=== PATIENT | male | born 1995 | race Two or more races ===

== ENCOUNTER 2025-06-11 00:31 | Inpatient (IN) | payer SELFPAY ==
[~2025-06-11] VITALS: Ht 170.2 cm; Wt 83.4 kg
[2025-06-11 00:57] LABS: PLATELET COUNT, AUTOMATED 249 10^3/uL (150-450)
[2025-06-11 01:21] LABS: ETHYL ALCOHOL (ETHANOL) 0.183 % (0.000-0.010)
[2025-06-11 01:23] LABS: SALICYLATE LEVEL < 3.0 MG/DL (<30)
[2025-06-11 01:24] LABS: ALT/SGPT 14 U/L (7.0-40); AST/SGOT 25 U/L (<34); CALCIUM LEVEL 9.2 MG/DL (8.5-10.1); CARBON DIOXIDE LEVEL 24 MMOL/L (20-31); CHLORIDE LEVEL 104 MMOL/L (98-107); CREATININE FOR GFR 0.92 MG/DL (0.70-1.30); GLOMERULAR FILTRATION RATE > 90.0 (>60); POTASSIUM SERUM 3.8 MMOL/L (3.5-5.1); SODIUM LEVEL 142 MMOL/L (136-145)
[2025-06-11 01:41] LABS: PHENCYCLIDINE URINE NEGATIVE (NEGATIVE)
[2025-06-11 01:42] LABS: AMPHETAMINES LEVEL URINE NEGATIVE (NEGATIVE); BARBITURATES URINE NEGATIVE (NEGATIVE); BENZODIAZEPINES URINE NEGATIVE (NEGATIVE); CANNABINOIDS URINE POSITIVE (NEGATIVE); COCAINE METABOLITE URINE NEGATIVE (NEGATIVE); METHADONE URINE NEGATIVE (NEGATIVE); OPIATES URINE NEGATIVE (NEGATIVE)
[2025-06-11] MEDS ORDERED: LEXA1TAB PO (09:23)
[2025-06-11] MEDS ORDERED: LEVO50TA5 PO (09:23)
[2025-06-11] MEDS ORDERED: HOME MED LIST COMPLETE! XX SCH (09:25)
[2025-06-11] MEDS: FOLIC ACID 1 MG TAB PO SCH (09:59)
[2025-06-11] MEDS: MULTIVITAMINS/MINERALS THERAP 1 TAB PO SCH (10:00)
[2025-06-11] MEDS: THIAMINE 100 MG TAB PO SCH ×2 (10:00→20:27)
[2025-06-11] MEDS ORDERED: MAALOX 30 ML SUSP *UDC PO PRN (10:40)
[2025-06-11] MEDS ORDERED: MOM 30 ML SUSPENSION UDC PO PRN (10:40)
[2025-06-11] MEDS ORDERED: IBUPROFEN 400 MG TAB PO PRN (10:40)
[2025-06-11] MEDS: ESCITALOPRAM OXALATE 10 MG TABLET PO SCH (13:54)
[2025-06-11] MEDS: LEVOTHYROXINE 50 MCG TABLET (0.05 MG) PO SCH (13:54)
[2025-06-11 14:45] VITALS: BP 121/82
[2025-06-11] MEDS: traZODone 50 MG TAB PO PRN (23:16)
[2025-06-12 06:19] VITALS: BP 133/76; TEMP 96.7; O2SAT 98
[2025-06-12 06:34] VITALS: BP 133/76
[2025-06-12] MEDS: MULTIVITAMINS/MINERALS THERAP 1 TAB PO SCH (09:27)
[2025-06-12] MEDS: FOLIC ACID 1 MG TAB PO SCH (09:27)
[2025-06-12 14:36] VITALS: BP 137/83
[2025-06-12 15:26] VITALS: BP 137/85; TEMP 98; O2SAT 99
[2025-06-13 06:23] VITALS: BP 119/71; TEMP 97.1; O2SAT 98
[2025-06-13 06:30] VITALS: BP 119/71
[2025-06-13 14:30] VITALS: BP_SYST 133; BP_SYST 138; BP_DIAS 78; BP_DIAS 85
[2025-06-13 18:30] VITALS: BP 117/71; TEMP 98.9; O2SAT 100
[2025-06-13 22:00] VITALS: BP 130/76
[2025-06-14 06:00] VITALS: BP 136/76
[2025-06-14 06:51] VITALS: BP 136/71; TEMP 97.5; O2SAT 98
[2025-06-14 15:29] VITALS: BP 139/79
[2025-06-14 16:07] VITALS: BP 139/79; TEMP 98.6; O2SAT 97
[2025-06-14] MEDS: traZODone 100 MG TAB PO PRN (22:24)
[2025-06-15 06:24] VITALS: BP 134/69; TEMP 98.1; O2SAT 98
[2025-06-15] MEDS ORDERED: TRAZ-257 PO (08:35)
[2025-06-15] MEDS ORDERED: LEXA1TAB PO (08:35)
[2025-06-15] MEDS: ACETAMINOPHEN 325 MG TAB PO PRN (09:27)
== END 2025-06-15 11:55 | disposition home or self-care (01) | DRG 754 ==
LOC: M ED 00:31 → M ED INP 10:36 → M PSY 13:04
PROVIDERS: ADMIT General Practice; ATTEND General Practice
DX: F32.A Depression, unspecified (principal); R45.851 Suicidal ideations; Z91.148 Patient's other noncompliance with medication regimen for other reason; F10.10 Alcohol abuse, uncomplicated; F43.10 Post-traumatic stress disorder, unspecified; F41.9 Anxiety disorder, unspecified; F12.90 Cannabis use, unspecified, uncomplicated; Z79.899 Other long term (current) drug therapy; E66.01 Morbid (severe) obesity due to excess calories; G25.81 Restless legs syndrome; G47.00 Insomnia, unspecified; F17.290 Nicotine dependence, other tobacco product, uncomplicated; Z98.84 Bariatric surgery status